=== PATIENT | male | born 1945 ===

== ENCOUNTER 2019-01-04 09:02 | Outpatient (CLI) | payer MEDICARE | END 2019-01-04 09:03 | disposition home or self-care (01) | LOC: C.USIC 09:02 | DX: R10.9 Unspecified abdominal pain (principal); E11.9 Type 2 diabetes mellitus without complications ==

== ENCOUNTER 2019-02-11 14:35 | Outpatient (CLI) | payer MEDICARE | END 2019-02-11 14:36 | disposition home or self-care (01) | LOC: C.USIC 14:35 ==